=== PATIENT | female | born 1985 | race Caucasian/White ===

== ENCOUNTER 2022-11-01 10:10 | Emergency (ER) | payer OTHER, SELFPAY ==
[2022-11-01 10:12] VITALS: BP 140/100; PULSE 83; RESP 18; TEMP 36.6; O2SAT 97; BMI 34.5
--- NOTE | 2022-11-01 10:21 | ED.ABDPAIN1 ---
HPI - Abdominal Pain General Chief Complaint: Abdominal Pain Stated Complaint: ABDOMINAL PAIN Time Seen by Provider: 11/01/22 10:20 Source: patient Mode of arrival: walk-in Limitations: no limitations History of Present Illness HPI narrative: This document has been composed with a new electronic medical record and [employer] voice recognition system. This document may not fully inaccurately reflect the entirety of the patient encounter.patient presents to emergency room with abdominal pain. She had an episode a couple weeks ago that was similar but it went away after two days. This time her pain began Wednesday evening and is intensified gotten much worse. She had a temperature last evening of over one oh two. She has a very strong family history of diverticulitis. Her pain is in the left lower quadrant. She has never had upper or lower endoscopy. Before Wednesday when the pain began this week, she had about five days of copious diarrhea. No other household contacts had except her. She did not have any blood in the stool at that time. She's not been on any antibiotics. She does have other medical problems including a thyroid disorder. Does not have any back or flank pain or urinary type symptomatology. Related Data Home Medications Medication Instructions Recorded Confirmed levothyroxine 100 mcg tablet 100 mcg PO BID 11/01/22 11/01/22 losartan 50 mg tablet 50 mg PO DAILY 11/01/22 11/01/22 nebivolol 20 mg tablet 20 mg PO DAILY 11/01/22 11/01/22 thyroid (pork) 120 mg tablet ([employer] 120 mg PO BID 11/01/22 11/01/22 Thyroid) Allergies Allergy/AdvReac Type Severity Reaction Status Date / Time No Known Drug Allergies Allergy Verified 11/01/22 10:17 Exam Narrative Exam Narrative: awake alert pleasant mild discomfort is requesting something for pain. Vital signs are noted she is afebrile this time. Problem focused examination abdomen shows definite tenderness to palpation in the left lower quadrant with no rebound rigidity or peritoneal findings. No pain at McBurney's point. Saeed sign is negative. Chest examination shows no blustery distress. Neurological shows no focal or lateralized neurological findings. Back shows no tenderness over the costovertebral angles. Constitutional shows no scleral icterus pallor or anemia Skin is warm and dry with no diaphoresis. Constitutional Vital Signs, click to edit/add: Last Vital Signs Temp 97.9 F 11/01/22 10:12 Pulse 83 11/01/22 10:12 Resp 18 11/01/22 10:12 BP 140/100 H 11/01/22 10:12 Pulse Ox 97 11/01/22 10:12 O2 Del Method Room Air 11/01/22 10:12 Course Vital Signs Vital signs: Vital Signs Temperature 97.9 F 11/01/22 10:12 Pulse Rate 83 11/01/22 10:12 Respiratory Rate 18 11/01/22 10:12 Blood Pressure 140/100 H 11/01/22 10:12 Pulse Oximetry 97 11/01/22 10:12 Oxygen Delivery Method Room Air 11/01/22 10:12 Temperature 97.9 F 11/01/22 10:12 Pulse Rate 83 11/01/22 10:12 Respiratory Rate 18 11/01/22 10:12 Blood Pressure 140/100 H 11/01/22 10:12 Pulse Oximetry 97 11/01/22 10:12 Oxygen Delivery Method Room Air 11/01/22 10:12 MDM - Abdominal Pain MDM Narrative Medical decision making narrative: patient with two episodes of abdominal pain most currently one started on Wednesday night, two days ago. Her white blood cell count is modestly elevated. CT scan confirms diverticulitis and other nonacute findings. She was started on intravenous antibiotics, both ciprofloxacin and Flagyl here in the Emergency Room and will continue oral pills. I believe she is reliable and suitable for outpatient management. While her mother was present in the room, who incidentally had complications from diverticular disease herself, she is advised to have no solid food intake for three days clear fluid diet, dual antibiotics, she is to contact her primary care doctor tomorrow and be reevaluated on Wednesday and she is to return if she has any worsening of the pain or inability to take the antibiotics. Lab Data Labs: Lab Results 11/01/22 Range/Units 10:21 WBC 13.8 H (4.0-11.0) 10^3/uL RBC 4.60 (4.20-5.40) 10^6/uL Hgb 12.9 (12.0-16.0) g/dL Hct 38.7 (36.0-48.0) % MCV 84.1 (81.0-99.0) fL MCH 28.0 (26.7-34.0) pg MCHC 33.3 (29.9-35.2) g/dL RDW 12.3 (11.0-15.0) % Plt Count 281 (150-450) 10^3/uL MPV 9.3 L (9.5-13.5) fL Neut % (Auto) 77.4 H (43.0-75.0) % Lymph % (Auto) 11.5 L (20.5-60.0) % [place] % (Auto) 9.1 (1.7-12.0) % Eos % (Auto) 0.9 (0.9-7.0) % Baso % (Auto) 0.3 (0.2-2.0) % Neut # (Auto) 10.7 H (1.4-6.5) 10^3/uL Lymph # (Auto) 1.6 (1.2-3.8) 10^3/uL [place] # (Auto) 1.3 H (0.3-0.8) 10^3/uL Eos # (Auto) 0.1 (0.0-0.7) 10^3/uL Baso # (Auto) 0.0 (0.0-0.1) 10^3/uL Abs Immat Gran (auto) 0.11 H (0.00-0.03) 10^3/uL Imm/Tot Granulo (auto) 0.8 H (0.0-0.5) % Sodium 138 (136-145) mmol/L Potassium 4.1 (3.5-5.1) mmol/L Chloride 107 (98-107) mmol/L Carbon Dioxide 24.5 (21.0-32.0) mmol/L Anion Gap 10.6 BUN 8.0 (7.0-18.0) mg/dL Creatinine 0.69 (0.55-1.02) mg/dL Est GFR ( Amer) >60 (>=60) Est GFR (Non-Af Amer) >60 (>=60) BUN/Creatinine Ratio 11.6 Glucose 111 H (74-106) mg/dL Lactate 1.1 (0.4-2.0) mmol/L Calcium 9.2 (8.5-10.1) mg/dL Total Bilirubin 0.4 (0.2-1.0) mg/dL AST 57 H (15-37) U/L ALT 100 H (14-59) U/L Alkaline Phosphatase 85 (46-116) U/L Total Protein 7.1 (6.4-8.2) g/dL Albumin 3.2 L (3.4-5.0) g/dL Globulin 3.9 g/dL Albumin/Globulin Ratio 0.8 Lipase 45.0 L (73.0-393.0) U/L Urine Color Lt. yellow (YELLOW) Urine Clarity Clear (CLEAR) Urine pH 7.0 (5.0-9.0) Ur Specific [place] 1.020 (1.005-1.025) Urine Protein Negative (NEG/TRACE) mg/dL Urine Glucose (UA) Negative (NEGATIVE) mg/dL Urine Ketones Negative (NEGATIVE) mg/dL Urine Occult Blood Negative (NEGATIVE) Urine Nitrite Negative (NEGATIVE) Urine Bilirubin Negative (NEGATIVE) Urine Urobilinogen 0.2 (0.2-1.0) EU/dL Ur Leukocyte Esterase Negative (NEGATIVE) Discharge Plan Discharge Chief Complaint: Abdominal Pain Clinical Impression: Diverticulitis Patient Disposition: Home, Self-Care Time of Disposition Decision: 13:10 Prescriptions / Home Meds: No Action levothyroxine 100 mcg tablet 100 mcg PO BID thyroid (pork) [[employer] Thyroid] 120 mg tablet 120 mg PO BID nebivolol 20 mg tablet 20 mg PO DAILY losartan 50 mg tablet 50 mg PO DAILY Additional Instructions: Cipro/Flagyl/clear fluids only for seventy-two hours. Repeat evaluation by her primary care doctor within forty-eight hours. Return for any complications or worsening Stand Alone Forms: Portal Instructions Referrals: CALVIN RAHMAN [Primary Care Provider] - 1 week
--- NOTE | 2022-11-01 10:34 | CT_ITS ---
The [address] [address] Patient Name: AUBREY RAMIREZ MRN: [id number] date: 1985 Sex: F Assigned Patient Location: ER Current Patient Location: ER Accession/Order Number: [id number] Exam Date: 11/01/2022 11:00 Report Date: 11/01/2022 11:48 At the request of: IESHA SANCHEZ Procedure: CT abdomen pelvis w con EXAM: CT abdomen pelvis w con HISTORY: Left lower quadrant pain. COMPARISON: None. TECHNIQUE: Routine CT abdomen/pelvis with intravenous contrast. FINDINGS: Lower chest: Unremarkable. Liver: Unremarkable. Gallbladder/biliary tree: Unremarkable. Pancreas: Unremarkable. Spleen: Mild splenomegaly measuring 12.2 x 3.1 x 14.8 cm in longitudinal, transverse and AP dimensions. Adrenal glands: Bilateral adrenal nodules measuring 1.7 cm on the right (51 Hounsfield units) and 1.2 cm on the left (49 Hounsfield units). Kidneys: Unremarkable. Bowel: Diverticula along the descending and sigmoid colon. There is colonic wall thickening at the junction of the descending and sigmoid colon with associated pericolonic inflammatory reaction consistent with acute diverticulitis. There is no free air or abscess. There is a large amount of stool within the colon. The appendix is unremarkable. The distal esophagus is unremarkable. There is prominence of the gastric rugal fold pattern which most likely is related to underdistention. Fluid and air-fluid levels are seen within distal jejunal and ileal small bowel loops which may represent a reactive ileus. The bowel gas pattern is nonobstructive. Inflammation: As previously described. Vasculature: The abdominal aorta and the IVC are unremarkable. Lymphadenopathy: There are no pathologically enlarged lymph nodes within the abdomen/pelvis. Pelvis: The unopacified urinary bladder is unremarkable. IUD within the fundal portion of the endometrial cavity. The distal limbs of the IUD are near the serosal surface suggesting myometrial migration. Osseous: Small amount of fat extends into the umbilicus. There is no osseous abnormality. CT/CT abdomen pelvis w con IMPRESSION: Diverticulum of the descending and sigmoid colon with diverticulitis at the junction of the descending and sigmoid colon. There is no free air or abscess. There is a large amount of stool within the colon. Fluid within the distal jejunal and ileal small bowel loops which may represent a reactive ileus. The bowel gas pattern is nonobstructive. Mild splenomegaly measuring 12.2 x 3.1 x 14.8 cm in longitudinal, transverse and AP dimensions. Nonspecific bilateral adrenal nodules measuring 1.7 cm on the right (51 Hounsfield units) and 1.2 cm on the left enthesis 49 Hounsfield units). IUD within the fundal portion of the endometrial cavity. The distal limbs of the IUD are near the serosal surface suggesting myometrial migration. Electronically authenticated by: MARY RAMIREZ Date: 11/01/2022 11:48
[2022-11-01] MEDS: HYDROMORPHONE HCL 1 MG/ML CARTRIDGE IVP ×2 (10:44→12:52)
[2022-11-01] MEDS: 0.9 % SODIUM CHLORIDE 1,000 ML 999 ML IV (10:44)
[2022-11-01 10:47] LABS: Basophils Percent Auto 0.3 % (0.2-2.0); Eosinophils Absolute Auto 0.1 10^3/uL (0.0-0.7); Eosinophils Percent Auto 0.9 % (0.9-7.0); Hematocrit 38.7 % (36.0-48.0); Hemoglobin 12.9 g/dL (12.0-16.0); Immature Granulocytes Abs Auto 0.11 10^3/uL (0.00-0.03); Immature Granulocytes Pct Auto 0.8 % (0.0-0.5); Lymphocytes Absolute Auto 1.6 10^3/uL (1.2-3.8); Lymphocytes Percent Auto 11.5 % (20.5-60.0); Mean Corpuscular HGB Conc 33.3 g/dL (29.9-35.2); Mean Corpuscular Volume 84.1 fL (81.0-99.0); Mean Platelet Volume 9.3 fL (9.5-13.5); Monocytes Absolute Auto 1.3 10^3/uL (0.3-0.8); Monocytes Percent Auto 9.1 % (1.7-12.0); Neutrophils Absolute Auto 10.7 10^3/uL (1.4-6.5); Neutrophils Percent Auto 77.4 % (43.0-75.0); Platelet Count 281 10^3/uL (150-450); Red Cell Distribution Width 12.3 % (11.0-15.0); White Blood Count 13.8 10^3/uL (4.0-11.0)
[2022-11-01 10:48] LABS: Bilirubin Urine NEGATIVE (NEGATIVE); Blood Urine NEGATIVE (NEGATIVE); Clarity Urine CLEAR (CLEAR); Color Urine LT. YELLOW (YELLOW); Glucose Urine UA NEGATIVE (NEGATIVE); Ketones Urine NEGATIVE (NEGATIVE); Leukocyte Esterase Urine NEGATIVE (NEGATIVE); Nitrite Urine NEGATIVE (NEGATIVE); Protein Urine NEGATIVE (NEG/TRACE); Urobilinogen Urine 0.2 EU/dL (0.2-1.0)
[2022-11-01 10:49] LABS: Urine Microscopic Indicated NO
[2022-11-01 10:56] LABS: Alanine Aminotransferase 100 U/L (14-59); Albumin Globulin Ratio 0.8; Albumin Level 3.2 g/dL (3.4-5.0); Alkaline Phosphatase 85 U/L (46-116); Anion Gap 10.6; Aspartate Amino Transferase 57 U/L (15-37); BUN Creatinine Ratio 11.6; Bilirubin Total 0.4 mg/dL (0.2-1.0); Calcium 9.2 mg/dL (8.5-10.1); Carbon Dioxide 24.5 mmol/L (21.0-32.0); Chloride 107 mmol/L (98-107); Estimated GFR (African America >60 (>=60); Estimated GFR (Non-African Ame >60 (>=60); Globulin 3.9 g/dL; Glucose 111 mg/dL (74-106); Potassium 4.1 mmol/L (3.5-5.1); Sodium 138 mmol/L (136-145); Total Protein 7.1 g/dL (6.4-8.2)
[2022-11-01 10:58] LABS: Lactate/Lactic Acid 1.1 mmol/L (0.4-2.0)
[2022-11-01] MEDS: METRONIDAZOLE/SODIUM CHLORIDE 500 MG/100 ML PREMIX 100 MG IV (11:59)
[2022-11-01 12:04] VITALS: BP 137/91; O2SAT 96
[2022-11-01] MEDS: CIPROFLOXACIN IN 5 % DEXTROSE 400 MG/200 ML PIGGYBACK 200 MG IV (13:07)
[2022-11-01 13:30] VITALS: BP 125/71; PULSE 77; RESP 16; O2SAT 97
== END 2022-11-01 14:14 | disposition home or self-care (01) ==
PROVIDERS: Emergency Provider Emergency Medicine Emergency Medical Services; PCP Family Medicine
DX: K57.32 Diverticulitis of large intestine without perforation or abscess without bleeding (principal); Z79.899 Other long term (current) drug therapy; Z79.890 Hormone replacement therapy
CPT/HCPCS: 36415; 74177; 80053; 81003; 83605; 83690; 85025; 96361; 96365; 96367; 96375; 96376; 99284; J1170; Q9967

== ENCOUNTER 2023-08-18 09:06 | Outpatient (OUT) | payer OTHER, SELFPAY | END 2023-08-18 09:07 | disposition home or self-care (01) | LOC: SLEEP 09:06 | PROVIDERS: PCP Family Medicine; Visit Provider Family Medicine | DX: G47.33 Obstructive sleep apnea (adult) (pediatric) (principal) | CPT/HCPCS: 95806 ==